=== PATIENT | female | born 1955 | race Caucasian/White ===

== ENCOUNTER 2017-03-26 13:58 | Outpatient (CLI) | payer BC ==
[2017-03-26 18:30] LABS: HEMOGLOBIN A1C 0.94 g/dL
== END 2017-03-26 13:59 | disposition home or self-care (01) ==
LOC: LAB.F 13:58
PROVIDERS: ATTEND Nurse Practitioner Family
DX: E11.65 Type 2 diabetes mellitus with hyperglycemia (principal)
CPT/HCPCS: 36415; 83036

== ENCOUNTER 2017-09-09 15:45 | Outpatient (CLI) | payer BC ==
--- NOTE | 2017-09-12 08:25 | Mammography Report ---
DIGITAL BILATERAL SCREENING MAMMOGRAM: 09/09/2017 CLINICAL INDICATION: A 61-year-old for screening. COMPARISON: 09/2015, 07/2013, 04/2012, 12/2010, 11/2010, 11/2009. TECHNIQUE: Routine CC and MLO projections were obtained of the breasts. The breasts again demonstrate scattered fibroglandular densities bilaterally. Asymmetric parenchyma in the left axillary tail is stable. Coarse and punctate, typically benign calcifications are present. No suspicious masses, clustered microcalcifications, or regions of architectural distortion are identified. IMPRESSION: Benign findings. RECOMMENDATIONS: Routine annual screening unless otherwise clinically indicated. BIRADS category 2 benign findings. STANDARD QUALIFYING STATEMENTS 1. This examination was reviewed with the aid of Computed-Aided Detection (CAD) . 2. A negative or benign imaging report should not delay biopsy if clinically suspicious findings are present. Consider surgical consultation if warranted. More than 5% of cancers are not identified by imaging. 3. Dense breasts may obscure an underlying neoplasm. TD: 09/11/2017 21:19 DIANNA
== END 2017-09-09 15:46 | disposition home or self-care (01) ==
LOC: DI.S 15:45
PROVIDERS: ATTEND Nurse Practitioner Family
DX: Z12.31 Encounter for screening mammogram for malignant neoplasm of breast (principal)
CPT/HCPCS: 77067

== ENCOUNTER 2018-06-12 09:42 | Outpatient (CLI) | payer BC ==
[2018-06-12 17:06] LABS: BASOPHILS # (AUTO) 0.1 10^3/uL (0.0-0.1); BASOPHILS % (AUTO) 0.8 %; EOSINOPHILS # (AUTO) 0.3 10^3/uL (0.0-0.7); EOSINOPHILS % (AUTO) 3.5 %; HGB - HEMOGLOBIN 12.2 g/dL (12.0-16.0); LYMPHOCYTES # (AUTO) 1.8 10^3/uL (1.5-3.5); LYMPHOCYTES % (AUTO) 21.8 %; MEAN CORPUSCULAR HEMOGLOBIN 30.4 pg (27.0-31.0); MEAN CORPUSCULAR HGB CONC 34.1 g/dL (32.0-36.0); MEAN PLATELET VOLUME 8.3 fL (7.9-10.8); MONOCYTES # (AUTO) 0.6 10^3/uL (0.0-1.0); MONOCYTES % (AUTO) 6.9 %; NEUTROPHILS # (AUTO) 5.6 10^3/uL (1.5-6.6); PLT - PLATELET COUNT 298 10^3/uL (130-450); RED BLOOD COUNT 4.02 10^6/uL (4.20-5.40); RED CELL DISTRIBUTION WIDTH 13.4 % (12.0-15.0); WHITE BLOOD COUNT 8.4 x10^3/uL (4.8-10.8)
[2018-06-12 17:27] LABS: ALBUMIN 3.9 g/dL (3.2-5.5); ALBUMIN/GLOBULIN RATIO 1.3 (1.0-2.2); ALKALINE PHOSPHATASE 54 IU/L (42-121); ALT ALANINE AMINOTRANSFERASE 42 IU/L (10-60); AST ASPARTATE AMINOTRANSFERASE 29 IU/L (10-42); BILIRUBIN,TOTAL 0.3 mg/dL (0.2-1.0); BUN - BLOOD UREA NITROGEN 19 mg/dL (6-20); CALCIUM 9.3 mg/dL (8.5-10.3); CARBON DIOXIDE - CO2 28 mmol/L (21-32); CHLORIDE 104 mmol/L (101-111); CHOL/HDL RATIO 2.6 (<4.4); CHOLESTEROL 164 mg/dL; CREATININE 0.6 mg/dL (0.4-1.0); GFR - MDRD 102 (>89); GLUCOSE 121 mg/dL (70-100); HDL CHOLESTEROL 63 mg/dL; SODIUM 140 mmol/L (135-145); TOTAL PROTEIN 6.8 g/dL (6.7-8.2)
[2018-06-12 18:02] LABS: LDL CHOLESTEROL,DIRECT 93 mg/dL; LDLD/HDL RATIO 1.5 (<4.4)
[2018-06-12 19:46] LABS: HB2 TOTAL 12.9 g/dL; HEMOGLOBIN A1C 1.31 g/dL; HEMOGLOBIN A1C % 11.4 % (4.6-6.2)
[2018-06-13 13:01] LABS: HEPATITIS C ANTIBODY NON-REACTIVE (NON-REACTIVE)
== END 2018-06-12 09:43 | disposition home or self-care (01) ==
LOC: LAB.F 09:42
PROVIDERS: ATTEND Nurse Practitioner Family
DX: Z00.00 Encounter for general adult medical examination without abnormal findings (principal); E55.9 Vitamin D deficiency, unspecified; E78.5 Hyperlipidemia, unspecified; E11.9 Type 2 diabetes mellitus without complications; Z11.59 Encounter for screening for other viral diseases
CPT/HCPCS: 36415; 80053; 80061; 82306; 82728; 83036; 83721; 85025; 86803

== ENCOUNTER 2018-11-20 14:22 | Outpatient (CLI) | payer BC ==
--- NOTE | 2018-11-23 08:45 | Mammography Report ---
Reason: SCREENING MAMMO Procedure Date: 11/20/2018 Accession Number: [id number] / [id number] Procedure: [facility] - Screening Mammo w/Gonzalez CPT Code: FULL RESULT: EXAM: Screening Mammo w/Gonzalez DATE: 11/20/2018 3:17 PM CLINICAL HISTORY: Screening encounter. History of breast cyst aspiration. No reported risk factors. TECHNIQUE: Bilateral CC and MLO views were obtained. A left laterally exaggerated CC view was obtained. COMPARISON: 09/09/2017 through 04/22/2012. FINDINGS: The breasts demonstrate scattered fibroglandular densities bilaterally. There are coarse typically benign calcifications. No suspicious masses, clustered microcalcifications, or regions of architectural distortion are identified. IMPRESSION: Benign findings RECOMMENDATION: Routine annual screening unless otherwise clinically indicated. BIRADS CATEGORY 2: Benign findings STANDARD QUALIFYING STATEMENTS: 1. This examination was not reviewed with the aid of Computer-Aided Detection (CAD). 2. A negative or benign imaging report should not delay biopsy if clinically suspicious findings are present. Consider surgical consultation if warrented. More than 5% of cancers are not identified by imaging. 3. Dense breasts may obscure an underlying neoplasm. 4. This examination was reviewed with the aid of 3D breast imaging (tomosynthesis).
== END 2018-11-20 14:23 | disposition home or self-care (01) ==
LOC: DI 14:22
PROVIDERS: ATTEND Nurse Practitioner Family
DX: Z12.31 Encounter for screening mammogram for malignant neoplasm of breast (principal)
CPT/HCPCS: 77063; 77067

== ENCOUNTER 2019-04-08 14:43 | Outpatient (CLI) | payer BC ==
--- NOTE | 2019-04-08 16:05 | XRAY Report ---
Reason: NON TRAUMATIC PAIN LOCALIZED POSTERIORLY STARTING Procedure Date: 04/08/2019 Accession Number: [id number] / [id number] Procedure: XRS - Knee 3 View LT CPT Code: FULL RESULT: EXAM: LEFT KNEE RADIOGRAPHY EXAM DATE: 04/08/2019 02:55 PM. CLINICAL HISTORY: Nontraumatic pain localized posteriorly for 6 weeks, now worsening. COMPARISON: None. TECHNIQUE: 3 views. FINDINGS: Bones: Normal. No fractures or bone lesions. Joints: There is mild lateral translation of the patella with degenerative changes along the lateral facet, mild narrowing of the medial weightbearing compartment with marginal osteophytosis. No significant joint effusion. No subluxation. Soft Tissues: Normal. No soft tissue swelling. IMPRESSION: Mild degenerative changes, patella predominant. Recommendation: Given the provided history, if Marinelli's cyst is in the differential, an ultrasound could be used for clarification. RADIA
== END 2019-04-08 14:44 | disposition home or self-care (01) ==
LOC: DI.S 14:43
PROVIDERS: ATTEND Nurse Practitioner Family
DX: M17.12 Unilateral primary osteoarthritis, left knee (principal)

== ENCOUNTER 2019-07-12 07:21 | Outpatient (CLI) | payer BC ==
[2019-07-12 09:58] LABS: BASOPHILS % (AUTO) 0.4 %; EOSINOPHILS # (AUTO) 0.3 10^3/uL (0.0-0.7); EOSINOPHILS % (AUTO) 2.7 %; HGB - HEMOGLOBIN 12.7 g/dL (12.0-16.0); LYMPHOCYTES % (AUTO) 21.4 %; MEAN CORPUSCULAR HGB CONC 32.9 g/dL (32.0-36.0); MEAN PLATELET VOLUME 10.2 fL (7.9-10.8); MONOCYTES # (AUTO) 0.6 10^3/uL (0.0-1.0); NEUTROPHILS # (AUTO) 6.5 10^3/uL (1.5-6.6); PLT - PLATELET COUNT 341 10^3/uL (130-450); RED BLOOD COUNT 4.24 10^6/uL (4.20-5.40); RED CELL DISTRIBUTION WIDTH 13.2 % (12.0-15.0); WHITE BLOOD COUNT 9.5 x10^3/uL (4.8-10.8)
[2019-07-12 10:10] LABS: ALBUMIN 4.2 g/dL (3.2-5.5); ALBUMIN/GLOBULIN RATIO 1.3 (1.0-2.2); ALKALINE PHOSPHATASE 56 IU/L (42-121); ALT ALANINE AMINOTRANSFERASE 26 IU/L (10-60); AST ASPARTATE AMINOTRANSFERASE 25 IU/L (10-42); BILIRUBIN,TOTAL 0.7 mg/dL (0.2-1.0); BUN - BLOOD UREA NITROGEN 22 mg/dL (6-20); CALCIUM 9.6 mg/dL (8.5-10.3); CARBON DIOXIDE - CO2 27 mmol/L (21-32); CHLORIDE 107 mmol/L (101-111); CHOLESTEROL 188 mg/dL; CREATININE 0.8 mg/dL (0.4-1.0); GFR - MDRD 73 (>89); GLUCOSE 103 mg/dL (70-100); HDL CHOLESTEROL 62 mg/dL; SODIUM 144 mmol/L (135-145); TOTAL PROTEIN 7.4 g/dL (6.7-8.2)
[2019-07-12 10:23] LABS: HB2 TOTAL 13.2 g/dL; HEMOGLOBIN A1C 0.8 g/dL; HEMOGLOBIN A1C % 7.7 % (4.6-6.2)
== END 2019-07-12 07:22 | disposition home or self-care (01) ==
LOC: LAB.S 07:21
PROVIDERS: ATTEND Nurse Practitioner Family
DX: Z00.00 Encounter for general adult medical examination without abnormal findings (principal); E55.9 Vitamin D deficiency, unspecified; E78.5 Hyperlipidemia, unspecified; E11.9 Type 2 diabetes mellitus without complications
CPT/HCPCS: 36415; 80053; 80061; 82306; 83036; 83721; 85025

== ENCOUNTER 2021-03-27 10:14 | Outpatient (CLI) | payer BC ==
[2021-03-27 17:24] LABS: ESTIMATED AVERAGE GLUCOSE 194 mg/dL (70-100); HEMOGLOBIN A1c% 8.4 % (4.27-6.07)
[2021-03-27 17:30] LABS: ALBUMIN 4.5 g/dL (3.2-5.5); ALBUMIN/GLOBULIN RATIO 1.5 (1.0-2.2); ALKALINE PHOSPHATASE 59 IU/L (42-121); ALT ALANINE AMINOTRANSFERASE 31 IU/L (10-60); AST ASPARTATE AMINOTRANSFERASE 26 IU/L (10-42); BILIRUBIN,TOTAL 0.9 mg/dL (0.2-1.0); BUN - BLOOD UREA NITROGEN 24 mg/dL (6-20); CALCIUM 9.6 mg/dL (8.5-10.3); CARBON DIOXIDE - CO2 29 mmol/L (21-32); CHLORIDE 100 mmol/L (101-111); CHOL/HDL RATIO 3.2 (<4.4); CHOLESTEROL 234 mg/dL; CREATININE 0.8 mg/dL (0.4-1.0); GFR - MDRD 72 (>89); GLUCOSE 152 mg/dL (70-100); HDL CHOLESTEROL 74 mg/dL; LDL CHOLESTEROL,CALCULATED 147 mg/dL; POTASSIUM 4.4 mmol/L (3.5-5.0); SODIUM 138 mmol/L (135-145); TOTAL PROTEIN 7.6 g/dL (6.7-8.2); TRIGLYCERIDES 65 mg/dL; VLDL CHOLESTEROL 13 mg/dL
[2021-03-27 18:51] LABS: MICROALBUM/CREATININE RATIO,UR 5.3 ug/mg (<30.0); MICROALBUMIN,URINE 0.4 mg/dL (0-300.0)
== END 2021-03-27 10:15 | disposition home or self-care (01) ==
LOC: LAB.S 10:14
PROVIDERS: ATTEND Physician Assistant
DX: E11.9 Type 2 diabetes mellitus without complications (principal)
CPT/HCPCS: 36415; 80053; 80061; 82043; 82570; 83036; 83721

== ENCOUNTER 2022-03-17 14:20 | Outpatient (CLI) | payer BC, MEDICARE ==
--- NOTE | 2022-03-19 09:17 | Mammography Report ---
BILATERAL DIGITAL SCREENING MAMMOGRAM 3D/2D: 03/17/2022 CLINICAL: Routine screening. Family history of breast cancer. Comparison is made to exams dated: 09/09/2017 mammogram, 11/20/2018 mammogram, and 10/20/2015 mammogram - [facility]. There are scattered fibroglandular elements in both breasts. No significant masses, calcifications, or other findings are seen in either breast. There has been no significant interval change. IMPRESSION: NEGATIVE There is no mammographic evidence of malignancy. A 1 year screening mammogram is recommended. Based on the Tyrer Cuzick model (a risk assessment model) the patients lifetime risk is 6.1% and her 10 year risk is 2.9%. According to the ACR, ACS, and NCCN guidelines, an annual breast MRI exam leona g with mammogram is recommended if the patients lifetime risk is 20% or greater. This exam was interpreted at Station ID: [id number]. NOTE: For mammograms, a report in lay terms will be sent to the patient. Approximately 15% of breast malignancies will not be visualized mammographically. In the management of a palpable breast mass, a negative mammogram must not discourage biopsy of a clinically suspicious lesion. Electronically Signed By: Gustavo Bond M.D., jr/bakari:03/18/2022 09:13:58 ACR BI-RADS Category 1: Negative 3341F PARENCHYMAL PATTERN: (A) - The breast(s) demonstrate(s) scattered fibroglandular densities. BI-RADS CATEGORY: (1) - 1 RECOMMENDATION: (ANNUAL) - Recommend routine annual screening mammography. [id number] 1 year screening LATERALITY: (B)
== END 2022-03-17 14:21 | disposition home or self-care (01) ==
LOC: DI.S 14:20
PROVIDERS: ATTEND Physician Assistant
DX: Z12.31 Encounter for screening mammogram for malignant neoplasm of breast (principal); Z80.3 Family history of malignant neoplasm of breast

== ENCOUNTER 2022-03-19 07:12 | Outpatient (CLI) | payer BC, MEDICARE ==
[2022-03-19 14:32] LABS: ALBUMIN 4.2 g/dL (3.2-5.5); ALBUMIN/GLOBULIN RATIO 1.4 (1.0-2.2); ALKALINE PHOSPHATASE 47 IU/L (42-121); ALT ALANINE AMINOTRANSFERASE 29 IU/L (10-60); AST ASPARTATE AMINOTRANSFERASE 24 IU/L (10-42); BILIRUBIN,TOTAL 0.3 mg/dL (0.2-1.0); BUN - BLOOD UREA NITROGEN 24 mg/dL (6-20); CALCIUM 9.2 mg/dL (8.5-10.3); CARBON DIOXIDE - CO2 27 mmol/L (21-32); CHLORIDE 102 mmol/L (101-111); CHOL/HDL RATIO 2.2 (<4.4); CHOLESTEROL 153 mg/dL; CREATININE 0.9 mg/dL (0.4-1.0); GFR - MDRD 63 (>89); GLUCOSE 179 mg/dL (70-100); HDL CHOLESTEROL 71 mg/dL; LDL CHOLESTEROL,CALCULATED 70 mg/dL; POTASSIUM 4.7 mmol/L (3.5-5.0); SODIUM 139 mmol/L (135-145); TOTAL PROTEIN 7.1 g/dL (6.7-8.2); TRIGLYCERIDES 60 mg/dL; VLDL CHOLESTEROL 12 mg/dL
[2022-03-19 21:25] LABS: ESTIMATED AVERAGE GLUCOSE 183 mg/dL (70-100)
== END 2022-03-19 07:13 | disposition home or self-care (01) ==
LOC: LAB.S 07:12
PROVIDERS: ATTEND Physician Assistant
DX: E11.9 Type 2 diabetes mellitus without complications (principal); E78.5 Hyperlipidemia, unspecified
CPT/HCPCS: 36415; 80053; 80061; 83036; 83721

== ENCOUNTER 2022-07-10 07:01 | Outpatient (CLI) | payer MEDICARE ==
[2022-07-10 15:02] LABS: MICROALBUM/CREATININE RATIO,UR 3.5 ug/mg (<30.0); MICROALBUMIN,URINE 0.3 mg/dL (0-300.0)
[2022-07-10 15:11] LABS: ALBUMIN/GLOBULIN RATIO 1.4 (1.0-2.2); BILIRUBIN,TOTAL 0.3 mg/dL (0.2-1.0); CALCIUM 9.1 mg/dL (8.5-10.3); CREATININE 0.9 mg/dL (0.4-1.0); POTASSIUM 4.9 mmol/L (3.5-5.0); TOTAL PROTEIN 6.8 g/dL (6.7-8.2)
[2022-07-10 19:51] LABS: ESTIMATED AVERAGE GLUCOSE 154 mg/dL (70-100)
== END 2022-07-10 07:02 | disposition home or self-care (01) ==
LOC: LAB.S 07:01
PROVIDERS: ATTEND Nurse Practitioner
DX: E11.65 Type 2 diabetes mellitus with hyperglycemia (principal)
CPT/HCPCS: 36415; 80053; 82043; 82570; 83036

== ENCOUNTER 2022-11-08 12:35 | Outpatient (CLI) | payer MEDICARE ==
[2022-11-08 21:41] LABS: ESTIMATED AVERAGE GLUCOSE 154 mg/dL (70-100)
== END 2022-11-08 12:36 | disposition home or self-care (01) ==
LOC: LAB.S 12:35
PROVIDERS: ATTEND Nurse Practitioner
DX: E11.65 Type 2 diabetes mellitus with hyperglycemia (principal)
CPT/HCPCS: 36415; 83036

== ENCOUNTER 2023-03-06 09:34 | Outpatient (CLI) | payer MEDICARE ==
--- NOTE | 2023-03-06 16:29 | DEXA Report ---
PROCEDURE: Dexa Spine and/or Hip INDICATIONS: POST MENOPAUSAL TECHNIQUE: Dual energy x-ray absorptiometry (DXA) was performed on a Live[employer] System. Regions measur ed are the AP Spine, femoral neck, and if needed forearm. COMPARISON: None FINDINGS: Lumbar Spine: Bone Mineral Density 1.6 g/cm/cm,T score 3.4. Normal bone density Left Femoral Neck: Bone Mineral Density 1.2 g/cm/cm, T score 1.2. Normal bone density Impression: By WHO criteria, this patient has normal bone density of the lumbar spine and left femoral neck. Patients with diagnosis of osteoporosis or osteopenia should have regular bone mineral density assess ment. For those eligible for Medicare, routine testing is allowed once every 2 years. Testing frequ ency can be increased for patients who have rapidly progressing disease or for those who are receivin g medical therapy to restore bone mass. Reviewed by: Russ Donnelly MD on 03/06/2023 4:27 PM PDT Approved by: Russ Donnelly MD on 03/06/2023 4:27 PM PDT Station ID: [id number]
== END 2023-03-06 09:35 | disposition home or self-care (01) ==
LOC: DI 09:34
PROVIDERS: ATTEND Physician Assistant
DX: Z78.0 Asymptomatic menopausal state (principal)

== ENCOUNTER 2024-03-16 13:59 | Outpatient (CLI) | payer MEDICARE ==
--- NOTE | 2024-03-17 08:40 | Mammography Report ---
BILATERAL DIGITAL SCREENING MAMMOGRAM 3D/2D: 03/16/2024 CLINICAL: Routine screening. Family history of breast cancer. Comparison is made to exams dated: 03/17/2022 mammogram, 11/20/2018 mammogram, and 09/09/2017 mammogram - [facility]. There are scattered areas of fibroglandular density in both breasts (category b / 25%-50% glandular t issue). No significant masses, calcifications, or other findings are seen in either breast. There has been no significant interval change. IMPRESSION: NEGATIVE There is no mammographic evidence of malignancy. A 1 year screening mammogram is recommended. Based on the Tyrer Cuzick model (a risk assessment model) the patient's lifetime risk is 5.5% and her 10 year risk is 2.9%. According to the ACR, ACS, and NCCN guidelines, an annual breast MRI exam leona g with mammogram is recommended if the patient's lifetime risk is 20% or greater. This exam was interpreted at Station ID: [id number]. NOTE: For mammograms, a report in lay terms will be sent to the patient. Approximately 15% of breast malignancies will not be visualized mammographically. In the management of a palpable breast mass, a negative mammogram must not discourage biopsy of a clinically suspicious lesion. Electronically Signed By: Mago kirk/bakari:03/16/2024 16:05:46 letter sent: No_Letter ACR BI-RADS Category 1: Negative 3341F PARENCHYMAL PATTERN: (A) - The breast(s) demonstrate(s) scattered fibroglandular densities. BI-RADS CATEGORY: (1) - 1 RECOMMENDATION: (ANNUAL) - Recommend routine annual screening mammography. [id number] 1 year screening LATERALITY: (B)
== END 2024-03-16 14:00 | disposition home or self-care (01) ==
LOC: DI.S 13:59
PROVIDERS: ATTEND Physician Assistant
DX: Z12.31 Encounter for screening mammogram for malignant neoplasm of breast (principal); R92.323 Mammographic fibroglandular density, bilateral breasts